=== PATIENT | female | born 1955 | race Caucasian/White ===

== ENCOUNTER 2016-08-01 21:58 | Emergency (ER) | payer SELFPAY ==
[2016-08-01] MEDS ORDERED: FUROSEMIDE 40 MG TABLET ONE (22:38)
[2016-08-01] MEDS ORDERED: FAMOTIDINE 20 MG TABLET ONE (22:38)
== END 2016-08-01 22:56 | disposition home or self-care (01) ==
LOC: ED 21:58
DX: R60.0 Localized edema (principal); K21.9 Gastro-esophageal reflux disease without esophagitis; I50.9 Heart failure, unspecified; Z86.718 Personal history of other venous thrombosis and embolism